=== PATIENT | female | born 1985 | race Caucasian/White ===

== ENCOUNTER 2019-04-08 13:39 | Emergency (ER) | payer OTHER ==
[~2019-04-08] VITALS: Ht 172.7 cm; Wt 59.0 kg
[~2019-04-08 13:39] MED LIST: CIPRO500 MG PO; CYMBALTA60 MG PO; HYDROCODONE-AP1 EAC6 PO; TRAMADOL 50 MG50 MG PO; ZOFRAN ODT4 MG PO
[2019-04-08] MEDS ORDERED: VISTARIL 25 MG25 M1 PO (14:50)
[2019-04-08 15:24] VITALS: BP 118/89
--- NOTE | 2019-04-09 10:58 | EKG ---
[place] [address] ELECTROCARDIOGRAM REPORT Name: MADDISON GUERRERO Room: [facility]#: [id number] Admission: 04/08/19 Attend Phys: Discharge: 04/08/19 Date of : 85 Date of Service: 04/08/19 1344 Report #: [id number] THIS REPORT FOR: //name// [facility] ED Test Date: 2019-04-08 Test Time: 13:44:35 Pat Name: MADDISON GUERRERO Department: Room: Gender: [employer]: : 1985 Requested By: Lionel Monreal Order Number: [id number] MD: Dru Mckinney Measurements Intervals [place] Rate: 95 P: 42 MN: 118 QRS: 81 QRSD: 92 T: -67 QT: 362 QTc: 455 Interpretive Statements Sinus rhythm Borderline short [place] interval RSR' in V1 or V2, probably normal variant Borderline repolarization abnormality No previous ECG available for comparison Electronically Signed On 04-09-2019 10:57:29 INTEGRITY ASSESSOR by Dru Mckinney [email or web address] <ELECTRONICALLY SIGNED> By: Dru Mckinney MD, [facility] 04/09/19 1057 1344 1344 Dru Mckinney MD, [facility] /EPI
== END 2019-04-08 15:25 | disposition home or self-care (01) ==
LOC: M.ERS 13:39
DX: F41.0 Panic disorder [episodic paroxysmal anxiety] (principal); G89.29 Other chronic pain; F17.210 Nicotine dependence, cigarettes, uncomplicated